=== PATIENT | female | born 1955 | race Caucasian/White ===

== ENCOUNTER → 2016-11-19 | Outpatient (CLI) | payer BC ==
[2016-11-19 12:02] LABS: ABSOLUTE EOSINOPHILS # (AUTO) 0.3 10^3/uL (0.0-0.6); ABSOLUTE LYMPHOCYTES (AUTO) 1.7 10^3/uL (0.5-4.7); ABSOLUTE MONOCYTES (AUTO) 0.3 10^3/uL (0.1-1.4); ABSOLUTE NEUT (AUTO) 2.8 10^3/uL (1.7-8.2); BASOPHILS % (AUTO) 0.6 % (0-2); EOSINOPHILS % (AUTO) 5.3 % (0-6); HEMATOCRIT 34.7 % (36.0-47.0); HEMOGLOBIN 11.5 g/dL (12.0-15.5); HGB HCT DIFFERENCE -0.2; LYMPHOCYTES % (AUTO) 32.8 % (13-45); MEAN CORPUSCULAR HEMOGLOBIN 29.7 pg (27.0-33.4); MEAN CORPUSCULAR HGB CONC 33.3 g/dL (32.0-36.0); MEAN CORPUSCULAR VOLUME 89 fl (80-97); MONOCYTES % (AUTO) 6.6 % (3-13); RED BLOOD COUNT 3.89 10^6/uL (3.72-5.28); RED CELL DISTRIBUTION WIDTH 13.5 % (11.5-14.0); SEGMENTED NEUTROPHILS % (AUTO) 54.7 % (42-78)
[2016-11-19 12:23] LABS: ALANINE AMINOTRANSFERASE 29 U/L (9-52); ALBUMIN 3.8 g/dL (3.5-5.0); ALKALINE PHOSPHATASE 85 U/L (38-126); ANION GAP 11 (5-19); ASPARTATE AMINO TRANSFERASE 26 U/L (14-36); BILIRUBIN,TOTAL 0.4 mg/dL (0.2-1.3); BLOOD UREA NITROGEN 12 mg/dL (7-20); CALCIUM 10.3 mg/dL (8.4-10.2); CARBON DIOXIDE 27 mmol/L (22-30); CHLORIDE 103 mmol/L (98-107); CHOLESTEROL 159.29 mg/dL (0-200); CREATININE RESULT 0.55 mg/dL (0.52-1.25); Direct HDL 50 mg/dL (>40); GLUCOSE 83 mg/dL (75-110); POTASSIUM 4.3 mmol/L (3.6-5.0); SODIUM 141.2 mmol/L (137-145); TOTAL PROTEIN 6.3 g/dL (6.3-8.2); TRIGLYCERIDES 88 mg/dL (<150)
[2016-11-19 12:34] LABS: DIRECT LDL 99 mg/dL (<100)
== END ==
LOC: OD 10:35
PROVIDERS: ATTEND Internal Medicine
DX: E11.9 Type 2 diabetes mellitus without complications (principal); I10 Essential (primary) hypertension; E78.5 Hyperlipidemia, unspecified; R53.83 Other fatigue
CPT/HCPCS: 36415; 80053; 80061; 83036; 85025

== ENCOUNTER 2017-05-12 13:07 | Emergency (ER) | payer BC ==
[2017-05-12 13:17] VITALS: BP 127/52
[2017-05-12] MEDS ORDERED: ACETAMINOPHEN 325 MG TABLET PO ONE (13:44)
--- NOTE | 2017-05-12 14:20 | ER Document Report ---
ED Fall - General Chief Complaint: Fall Stated Complaint: LEFT ANKLE PAIN Time Seen by Provider: 05/12/17 13:36 Notes: Patient is a 61-year-old female who was taking a tree out of her garden when she suffered from a witnessed mechanical fall. Patient admits to pain in bilateral ankles with a puncture wound left calf with slow bleeding. Also admits to left wrist pain and left hand pain but she fell back sure to catch herself. Patient states that she did hit her head, unsure of LOC but she remembers her talking to her. Patient is on Plavix for history of stroke more than 5 years ago. TRAVEL OUTSIDE OF THE [place] IN LAST 30 DAYS: No - Related data Allergies/Adverse Reactions: acetaminophen [From Percocet] Allergy (Unknown, Verified 05/12/17 13:15) aspirin [Aspirin] Allergy (Unknown, Verified 05/12/17 13:15) oxycodone HCl [From Percocet] Allergy (Unknown, Verified 05/12/17 13:15) peanut [Peanut] Allergy (Unknown, Verified 05/12/17 13:15) Sulfa (Sulfonamide Antibiotics) Allergy (Unknown, Verified 05/12/17 13:15) Past Medical History - Social History Smoking Status: Unknown if Ever Smoked Family History: Reviewed & Not Pertinent - Past Medical History Cardiac Medical History: Reports: Hx Hypercholesterolemia, Hx Hypertension Pulmonary Medical History: Reports: Hx Asthma, Hx COPD Neurological Medical History: Reports: Hx 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 Endocrine Medical History: Reports: Hx Diabetes Mellitus Type 2 Renal/ Medical History: Denies: Hx Peritoneal Dialysis GI Medical History: Reports: Hx Gastroesophageal Reflux Disease Psychiatric Medical History: Reports: Hx Post Traumatic Stress Disorder Past Surgical History: Reports: Hx Abdominal Surgery, Hx Bowel Surgery, Hx Orthopedic Surgery - knees, back, Hx Tubal Ligation - Immunizations Hx Diphtheria, Pertussis, Tetanus Vaccination: No Review of Systems - Review of Systems Constitutional: No symptoms reported Neurological/Psychological: Other - mild headache over her right eye but nothing at site of trauma Physical Exam - Vital signs Vitals: Temp Pulse Resp BP Pulse Ox 98.5 F 55 L 16 127/52 H 98 05/12/17 13:15 05/12/17 13:15 05/12/17 13:15 05/12/17 13:15 05/12/17 13:15 - General General appearance: Appears well, Alert In distress: None - HEENT Head: Normocephalic, Atraumatic. No: Abrasions, Lenz's sign, Ecchymosis, Open wounds, [place]'s eyes, Tenderness Eyes: Normal Conjunctiva: Normal Extraocular movements intact: Yes Eyelashes: Normal Pupils: PERRL - Cardiovascular Pulses: Normal: Radial, Dorsalis pedis Normal capillary refill: Yes - Back Back: Normal, Tender - bilateral paraspinous muscles, Other - patient jumping to superficial touch. No: Deformity/step-off, CVA tenderness, Vertebra tenderness, Scars, Scoliosis, Wounds - Extremities General lower extremity: Normal weight bearing - mild limp Shoulder: Normal, Nontender Elbow: Normal, Nontender Forearm: Normal, Nontender Wrist: Tender. No: Deformity, Dislocation, Limited ROM Hand: Tender. No: Deformity, Dislocation, Ecchymosis, Swelling Thigh: Normal Knee: Normal Calf: Normal Ankle: Tender - b/l, Ecchymosis. No: Deformity, Edema, Limited ROM Foot: Tender - b/l, Ecchymosis, Metatarsal compress. pain - b/l. No: Deformity , Edema - Skin Skin Temperature: Warm Skin Moisture: Dry Skin Color: Normal Skin Turgor: Elastic Skin irregularity: negative: Laceration Course - Re-evaluation Re-evalutation: 05/12/17 15:45 Patient does not have any focal neurologic deficits, nuchal rigidity, vital signs are within normal limits no papilledema. Patient is otherwise no acute distress and hemodynamically stable. Low index for suspicion of acute subarachnoid hemorrhage, meningitis or mass. Low suspicion for acute life- threatening etiology with intact neuro exam therefore no additional imaging or laboratory testing is indicated. All other imaging came back negative for fracture dislocation. Patient educated on rest, ice, compression, elevation for her other wounds. Patient expressed understanding. Patient stable for discharge home. - Vital Signs Vital signs: Temp Pulse Resp BP Pulse Ox 98.5 F 55 L 16 127/52 H 98 05/12/17 13:15 05/12/17 13:15 05/12/17 13:15 05/12/17 13:15 05/12/17 13:15 - Diagnostic Test Radiology reviewed: Image reviewed, Reports reviewed Discharge - Discharge Clinical Impression: Fall Qualifiers: Encounter type: initial encounter Qualified Code(s): W19.XXXA - Unspecified fall, initial encounter Condition: Good Additional Instructions: HEAD INJURY PRECAUTIONS: At this point, there is no evidence that your head injury is serious. Observation is necessary, however. Take only clear liquids for the first few hours, unless told otherwise by the doctor. If no pain medication was prescribed, you may take acetaminophen according to the directions on the bottle. Do not take any medication that may alter your level of alertness (unless you've discussed it with the doctor first) . Limit activity for the first 24 hours. Bed rest is best. During the first 24 hours, check to see approximately every two to three hours that the patient is easily arousable, responds normally, and can perform common tasks such as walking without difficulty. Contact your doctor or go to the hospital if any of the following things occur: Persistent vomiting, difficulty in arousing the patient, worsening or continued headache, or failure to improve as expected. Head injuries can cause symptoms that persist for a few days or even a few weeks. NECK INJURY (CERVICAL STRAIN): You have a neck strain. This is an injury to the muscles and ligaments in the neck. There is no evidence of a fracture of the neck bones. Also, no injury to the spinal cord or nerve roots was detected. Usually, stiffness and pain INCREASE for the first 24-48 hours after the injury. The pain will gradually resolve and the neck will become more mobile. Most patients are back at work or school within a few days. Typically, complete healing takes about two or three weeks. The usual initial treatment is rest and cold packs. A neck collar may be placed to keep the muscles of the neck at rest. Antiinflammatory and muscle relaxing medication are often used to reduce the spasm and irritation. You should call the doctor, or go to the hospital, if you develop numbness or weakness in any extremity, problems with your bladder or bowel, or pain radiating down the arms. MUSCLE STRAIN: You have strained a muscle -- torn the fibers within the muscle. This often occurs with strenuous exertion, or during an injury that suddenly stretches the muscle. The seriousness of a strain varies. Some strains heal within days, others cause problems for months. X-rays cannot show a muscle strain. X-rays are taken only if symptoms suggest that a fracture could be present. The usual treatment of a muscle strain is rest and ice packs. Sometimes, a sling, splint, or crutches may be necessary to rest the muscle. The muscle can be used again once pain subsides. Severe strains require a special exercise and stretching program to prevent permanent stiffness and disability. Your doctor will advise you if this will be necessary. Call the doctor immediately if pain or swelling becomes severe, or if numbness or discoloration develop. CONTUSION: Your injury has resulted in a contusion -- a crushing of the deep tissues. No injury to important structures was detected during the physician's exam. Contusions vary in the amount of pain they cause, and in the length of time required for healing. Typically, the area will become bruised, and will remain painful to touch for two or three weeks. However, most patients are back to working and playing within a few days. After the initial period of rest and cold-packs, your symptoms (together with the doctor's recommendations) will determine how rapidly you can get back to full activity. Usually this means "do what feels okay, but don't do things that hurt." If re-examination was recommended, it's important to follow up as instructed. Call the doctor or return any time if pain increases, if swelling becomes severe, if you develop numbness or weakness in an injured extremity, or if any other alarming symptoms occur. ABRASIONS: An abrasion is a scraping injury of the skin. Some scarring may result. The seriousness of an abrasion is not always obvious at first. Hidden tissue damage may be present and infection may occur despite proper care. Complete healing may take from ten days to as long as a month. The healing time depends on the depth of the abrasion, and on the amount of crushing of underlying tissues from the injury. Keep the wound and dressing clean. Do not shower or bathe the area until okayed by the doctor. If the dressing gets wet, remove it and blot the wound dry, then reapply a clean dressing. Dressings should be changed every day. Sunscreen should be used for six months after the skin is healed. If any signs of infection occur (swelling, redness, increasing tenderness, red streaks, profuse purulent drainage from the abrasion, tender lumps in the armpit or groin above the abrasion, or fever), see the doctor immediately. LOW BACK PAIN: Three out of every four people will have an episode of disabling back pain during their lifetime. Most commonly the pain is due to straining of the muscles and ligaments in the low back. Usual treatment includes: (1) Rest on a firm surface. Avoid lying on your stomach. (2) Ice pack the painful area. After a few days, gentle heat may be used intermittently to relax the area, or ice packs can be continued. (3) Medication may be needed -- muscle relaxers and antiinflammatory medicines are commonly used. (4) As the back improves, exercises are prescribed to strengthen the back and abdominal muscles. Your doctor will advise you on the proper care for your back at each stage in your recovery. You may be better in a few days -- or healing may take several weeks. If new symptoms of a "herniated disc" (radiation of pain, numbness, or tingling down the back of the leg or weakness in the leg) occur, you should be re-examined. Further testing may be necessary. USE OF TYLENOL (ACETAMINOPHEN): Acetaminophen may be taken for pain relief or fever control. It's much safer than aspirin, offering a wider range of "safe" dosages. It is safe during . Some brand names are Tylenol, Panadol, Datril, Anacin 3, Tempra, and Liquiprin. Acetaminophen can be repeated every four hours. The following are maximum recommended dosages: WEIGHT Dose Drops Elixir Chewable( 80mg) (LBS.) drprs=droppers tsp=teaspoon 6 40 mg 0.4 ml (1/2) 6-11 80 mg 0.8 ml (full) tsp 1 tab 12-16 120 mg 1 1/2 drprs 3/4 tsp 1 1/2 tabs 17-23 160 mg 2 drprs 1 tsp 2 tabs 24-30 240 mg 3 drprs 1 1/2 tsp 3 tabs 30-35 320 mg 2 tsp 4 tabs 36-41 360 mg 2 1/4 tsp 4 1/2 tabs 42-47 400 mg 2 1/2 tsp 5 tabs 48-53 480 mg 3 tsp 6 tabs 54-59 520 mg 3 1/4 tsp 6 1/2 tabs 60-64 560 mg 3 1/2 tsp 7 tabs 65-70 600 mg 3 3/4 tsp 7 1/2 tabs 71-76 640 mg 4 tsp 8 tabs 77-82 720 mg 4 1/2 tsp 9 tabs 83-88 800 mg 5 tsp 10 tabs >89 pounds or adults 650 mg to 900 mg Acetaminophen can be repeated every four hours. Maximum dose not to exceed 4000 mg a day. These maximum recommended dosages are slightly higher than the dosages written on the product container, but these dosages are very safe and below the toxic dosage for acetaminophen. NON-SUTURED LACERATION: Your laceration did not require suturing. Some lacerations cannot be sutured because of increased infection risk, while others simply don't need stitches because they are shallow or very short. Your injury should be protected while it heals. Usually complete healing takes 10 to 14 days. Keep the dressing clean and dry, and change it every day. If you notice increasing pain, redness, swelling, drainage, or tender lumps in the armpit or groin above the injury, infection may be present. You should call the doctor at once. TETANUS IMMUNIZATION GIVEN: You have been given an immunization against tetanus. Please record this in your records. In general, a booster is needed only once every 10 years. The tetanus shot protects against tetanus or "lockjaw," which is a complication of certain wound infections (the tetanus shot cannot protect against the actual infection). The immunization site may become warm and red due to local reaction. If this occurs, apply warm compresses and take aspirin or ibuprofen to reduce inflammation and discomfort. Return for evaluation if the reaction becomes severe. ICE PACKS: Apply ice packs frequently against the painful area. Many different schedules are recommended, such as "20 minutes on, 20 minutes off" or "one hour ice, two hours rest." If you need to work, you may need to go longer between ice treatments. You should plan to have the area ice packed AT LEAST one fourth of the time. The ice should be applied over the wrap, tape, or splint, or over a layer of cloth -- not directly against the skin. Some ice bags have a built-in cloth and can be put directly on the skin. WARM PACKS: After approximately two days, apply gentle heat (such as a heating pad or hot water bottle) for about 20 to 30 minutes about every two hours -- at least four times daily. Warmth and elevation will help you make a more rapid recovery , and will ease the pain considerably. Do not use HOT heat, and never apply heat for longer than 30 minutes. The continuous heat can invisibly damage skin and muscles -- even when no burn is seen on the surface. Damaged muscles can make you MORE sore. MUSCLE RELAXERS: Muscle relaxing medications are usually prescribed for acute muscle spasm or injury to the neck and back. They are often combined with antiinflammatory pain medication for increased relief. You may stop the muscle relaxer when the pain and stiffness have improved. Start the medication again if spasms recur. Muscle relaxers may cause drowsiness, especially with the first dose. Do not operate machinery or drive while under the effects of the medication. Most muscle relaxers last up to 24 hours. Do not combine the medication with alcohol. FOLLOW-UP CARE: If you have been referred to a physician for follow-up care, call the physician s office for an appointment as you were instructed or within the next two days. If you experience worsening or a significant change in your symptoms, notify the physician immediately or return to the Emergency Department at any time for re-evaluation. Prescriptions: Acetaminophen with Codeine [Acetaminophen-Cod #3 Tablet] 1 each PO BID #10 tablet Cyclobenzaprine HCl [Flexeril 10 mg Tablet] 10 mg PO TIDP PRN #15 tab PRN Reason: Referrals: YUNI MATTA MD [Primary Care Provider] - Follow up in 3-5 days
--- NOTE | 2017-05-12 14:49 | RADIOLOGY REPORT (SQ) ---
EXAM DESCRIPTION: CT HEAD WITHOUT COMPLETED DATE/TIME: 05/12/2017 2:38 pm REASON FOR STUDY: fall on plavix COMPARISON: 05/18/2011. TECHNIQUE: Axial images acquired through the brain without intravenous contrast. Images reviewed wi th bone, brain and subdural windows. Images stored on PACS. All CT scanners at this facility use dose modulation, iterative reconstruction, and/or weight based d osing when appropriate to reduce radiation dose to as low as reasonably achievable (ALARA). [facility]: Dose Right [facility]: CareDose [facility]: Dose Right [facility]: Teradose 4D [facility]: Ceannate RADIATION DOSE: Up-to-date CT equipment and radiation dose reduction techniques were employed. CTDIv ol: 49.0 mGy. DLP: 783 mGy-cm. mGy. LIMITATIONS: None. FINDINGS: VENTRICLES: Normal size and contour. CEREBRUM: No masses. No hemorrhage. No midline shift. Normal wu/white matter differentiation. N o evidence for acute infarction. CEREBELLUM: No masses. No hemorrhage. No alteration of density. No evidence for acute infarction. EXTRAAXIAL SPACES: No fluid collections. No masses. ORBITS AND GLOBE: No intra- or extraconal masses. Normal contour of globe without masses. CALVARIUM: No fracture. PARANASAL SINUSES: No fluid or mucosal thickening. SOFT TISSUES: No mass or hematoma. OTHER: No other significant finding. IMPRESSION: NORMAL BRAIN CT WITHOUT CONTRAST. TECHNICAL DOCUMENTATION: JOB ID: [id number] Quality ID # [id number]: Final reports with documentation of one or more dose reduction techniques (e.g., Au tomated exposure control, adjustment of the mA and/or kV according to patient size, use of iterative reconstruction technique) 2010 [employer]- All Rights Reserved
--- NOTE | 2017-05-12 14:50 | RADIOLOGY REPORT (SQ) ---
EXAM DESCRIPTION: ANKLE BILATERAL 3 VIEWS MIN COMPLETED DATE/TIME: 05/12/2017 2:42 pm REASON FOR STUDY: fall on plavix COMPARISON: None. NUMBER OF VIEWS: Three views. TECHNIQUE: AP, lateral, and oblique radiographic images acquired of the right and left ankle. LIMITATIONS: None. FINDINGS: MINERALIZATION: Normal. BONES: No acute fracture or dislocation. No worrisome bone lesions. JOINTS: No effusions. SOFT TISSUES: No soft tissue swelling. No foreign body. OTHER: No other significant finding. IMPRESSION: NO RADIOGRAPHIC EVIDENCE OF ACUTE INJURY OF THE RIGHT AND LEFT ANKLES. TECHNICAL DOCUMENTATION: JOB ID: [id number] [employer]- All Rights Reserved
--- NOTE | 2017-05-12 14:52 | RADIOLOGY REPORT (SQ) ---
EXAM DESCRIPTION: FOOT BILATERAL 3 VIEWS COMPLETED DATE/TIME: 05/12/2017 2:42 pm REASON FOR STUDY: fall on plavix COMPARISON: None. NUMBER OF VIEWS: Three views. TECHNIQUE: AP, lateral and oblique radiographic images acquired of the right and left foot. LIMITATIONS: None. FINDINGS: MINERALIZATION: Normal. BONES: No acute fracture or dislocation. Bilateral heel spurs. No worrisome bone lesions. JOINTS: No effusions. SOFT TISSUES: No soft tissue swelling. No foreign body. OTHER: No other significant finding. IMPRESSION: BILATERAL HEEL SPURS. OTHERWISE NEGATIVE STUDY OF THE RIGHT AND LEFT FEET. NO RADIOGRAP HIC EVIDENCE OF ACUTE INJURY. TECHNICAL DOCUMENTATION: JOB ID: [id number] [employer]- All Rights Reserved
--- NOTE | 2017-05-12 14:54 | RADIOLOGY REPORT (SQ) ---
EXAM DESCRIPTION: HAND LEFT 3 VIEWS COMPLETED DATE/TIME: 05/12/2017 2:42 pm REASON FOR STUDY: fall on plavix COMPARISON: None. EXAM PARAMETERS: NUMBER OF VIEWS: Three views. TECHNIQUE: AP, lateral and oblique radiographic images acquired of the left hand. LIMITATIONS: None. FINDINGS: MINERALIZATION: Normal. BONES: No acute fracture or dislocation. No worrisome bone lesions. Mild degenerative changes in th e interphalangeal joints with mild joint space narrowing and sclerosis. JOINTS: No effusions. SOFT TISSUES: No soft tissue swelling. No foreign body. OTHER: No other significant finding. IMPRESSION: MILD DEGENERATIVE CHANGES. NO RADIOGRAPHIC EVIDENCE OF ACUTE INJURY. TECHNICAL DOCUMENTATION: JOB ID: [id number] [employer]- All Rights Reserved
--- NOTE | 2017-05-12 14:54 | RADIOLOGY REPORT (SQ) ---
EXAM DESCRIPTION: WRIST LEFT 3 VIEWS COMPLETED DATE/TIME: 05/12/2017 2:42 pm REASON FOR STUDY: fall on plavix COMPARISON: None. NUMBER OF VIEWS: Three views. TECHNIQUE: AP, lateral, and oblique radiographic images acquired of the left wrist. LIMITATIONS: None. FINDINGS: MINERALIZATION: Normal. BONES: No acute fracture or dislocation. No worrisome bone lesions. Normal alignment. SOFT TISSUES: No soft tissue swelling. No foreign body. OTHER: No other significant finding. IMPRESSION: NEGATIVE STUDY OF THE LEFT WRIST. NO RADIOGRAPHIC EVIDENCE OF ACUTE INJURY. TECHNICAL DOCUMENTATION: JOB ID: [id number] [employer]- All Rights Reserved
--- NOTE | 2017-05-12 14:56 | RADIOLOGY REPORT (SQ) ---
EXAM DESCRIPTION: L SPINE WHOLE COMPLETED DATE/TIME: 05/12/2017 2:42 pm REASON FOR STUDY: fall on plavix COMPARISON: 10/04/2007. NUMBER OF VIEWS: Five views including obliques. TECHNIQUE: AP, lateral, oblique, and sacral radiographic images acquired of the lumbar spine. LIMITATIONS: None. FINDINGS: MINERALIZATION: Normal. SEGMENTATION: Normal. No transitional anatomy. ALIGNMENT: Normal. VERTEBRAE: Maintained height. No fracture or worrisome bone lesion. DISCS: Preserved height. No significant osteophytes or end plate irregularity. POSTERIOR ELEMENTS: Pedicles and facets are intact. No pars defect or posterior arch defects. HARDWARE: Disc hardware and posterior hardware at L4-L5. PARASPINAL SOFT TISSUES: Normal. PELVIS: Intact as visualized. No fractures or worrisome bone lesions. SI joints intact. OTHER: No other significant finding. IMPRESSION: SURGICAL CHANGES WITH HARDWARE. NO ACUTE FINDINGS. TECHNICAL DOCUMENTATION: JOB ID: [id number] [employer]- All Rights Reserved
--- NOTE | 2017-05-12 14:56 | RADIOLOGY REPORT (SQ) ---
EXAM DESCRIPTION: T SPINE AP/LAT COMPLETED DATE/TIME: 05/12/2017 2:42 pm REASON FOR STUDY: fall on plavix COMPARISON: None. NUMBER OF VIEWS: Two views. TECHNIQUE: AP and lateral radiographic images acquired of the thoracic spine. LIMITATIONS: None. FINDINGS: MINERALIZATION: Normal. ALIGNMENT: Normal. No scoliosis. VERTEBRAE: No fracture or bone lesion. Maintained height, normal segmentation. DISCS: No significant loss of height or significant narrowing. No large osteophytes. HARDWARE: None in the spine. MEDIASTINUM AND SOFT TISSUES: Normal heart size and aortic contour. No soft tissue abnormality. VISUALIZED LUNG LOCO: Clear. OTHER: No other significant finding. IMPRESSION: NO SIGNIFICANT RADIOGRAPHIC FINDING IN THE THORACIC SPINE. TECHNICAL DOCUMENTATION: JOB ID: [id number] [employer]- All Rights Reserved
== END 2017-05-12 16:05 | disposition home or self-care (01) ==
LOC: ER 13:07
DX: M25.572 Pain in left ankle and joints of left foot (principal); W14.XXXA Fall from tree, initial encounter; Z79.899 Other long term (current) drug therapy
CPT/HCPCS: 70450; 72070; 72110; 99284

== ENCOUNTER → 2017-07-21 | Outpatient (CLI) | payer BC ==
--- NOTE | 2017-07-22 19:28 | WOMENS IMAGING REPORT ---
EXAM DESCRIPTION: 3D SCREENING MAMMO BILAT COMPLETED DATE/TIME: 07/21/2017 8:41 am REASON FOR STUDY: SCREENING MAMMO Z12.31 ENCNTR SCREEN MAMMOGRAM FOR MALIGNANT NEOPLASM OF REKHA COMPARISON: Multiple since 2008 TECHNIQUE: Standard craniocaudal and mediolateral oblique views of each breast recorded using digita l acquisition and breast tomosynthesis. LIMITATIONS: None. FINDINGS: No masses, calcifications or architectural distortion. No areas of suspicion. Read with the assistance of CAD. .[facility] - R2 Cenova Version 1.3 .[facility] - R2 Cenova Version 1.3 .[facility] - R2 Cenova Version 2.4 .[facility] [place] - R2 Cenova Version 2.4 .[facility] BEDS AT THE [facility] - R2 Enterostomal Nurse Version 9.2 IMPRESSION: NORMAL MAMMOGRAM. BIRADS 1. BREAST DENSITY: b. There are scattered areas of fibroglandular density. BIRAD: 1 NEGATIVE RECOMMENDATION: ROUTINE SCREENING Please continue yearly bilateral screening tomosynthesis in July 2018 COMMENT: The patient has been notified of the results by letter per MQSA requirements. Additional no tification policies are in place for contacting patient with suspicious or incomplete findings. Quality ID #[id number]: The [employer] recommends an annual screening mammogram for women aged 40 years or over. This facility utilizes a reminder system to ensure that all patients receive reminder letters, and/or direct phone calls for appointments. This includes reminders for routine scr eening mammograms, diagnostic mammograms, or other Breast Imaging Interventions when appropriate. Th is patient will be placed in the appropriate reminder system. The [employer] (ACR) has developed recommendations for screening MRI of the breast s in certain patient populations, to be used in conjunction with mammography. Breast MRI surveillanc e may be appropriate for women with more than 20% lifetime risk of developing breast cancer as deter mined by genetic testing, significant family history of the disease, or history of mantle radiation f or Hodgkins Disease. ACR Practice Guidelines 2008. DBT Technology DBT is a type of tomographic mammography. With conventional mammography, overlapping breast tissue ma y make lesions difficult to detect, even with good compression. DBT uses an x-ray tube that rotates a round the breast, taking images at different angles. These images are then combined to create thin sl ices of the breast that the radiologist can view as a 3D reconstruction. The [employer] unit can perform full-field digital mammograms (2D imaging); or DBT (3D imaging); or both, in a combination mode that quickly performs both the mammogram and the tomosynthesis scan while the breast is still compressed. PQRS 6045F: Fluoroscopic imaging is not utilized for breast tomosynthesis. TECHNICAL DOCUMENTATION: FINDING NUMBER: (1) ASSESSMENT: (1) JOB ID: [id number] [employer]- All Rights Reserved
== END ==
LOC: WI 08:23
PROVIDERS: ATTEND Specialist
DX: Z12.31 Encounter for screening mammogram for malignant neoplasm of breast (principal)
CPT/HCPCS: 77063; G0202; 77067

== ENCOUNTER → 2017-08-06 | Outpatient (CLI) | payer BC ==
[2017-08-06 12:46] LABS: FOLATE > 20.00 ng/mL (>2.76)
== END ==
LOC: OD 10:06
PROVIDERS: ATTEND Physician Assistant Medical
DX: R07.89 Other chest pain (principal); R53.83 Other fatigue; R42 Dizziness and giddiness
CPT/HCPCS: 36415; 82607; 82728; 82746; 84443

== ENCOUNTER 2019-02-26 13:43 | Emergency (ER) | payer BC, MEDICARE ==
--- NOTE | 2019-02-26 14:00 | ER Document Report ---
ED Medical Screen (RME) - General Chief Complaint: Facial Swelling Stated Complaint: RIGHT EYE PAIN Time Seen by Provider: 02/26/19 13:56 Primary Care Provider: CAT WHITTINGTON PA-C [Primary Care Provider] - Follow up as needed Mode of Arrival: Ambulatory Information source: Patient Notes: 63-year-old female presented to ED for complaint of a painful swollen red area to the medial aspect of the right eye. She states it started 4 days ago she went to her primary care doctor who put her on antibiotics and eyedrops. Patient states she called the primary care doctor today because the pain and swelling was worse than 4 days ago. She states she is been taking the Augmentin as prescribed as well as the eyedrops. Patient states her primary care doctor instructed her to go to the emergency room she would probably need a CT and an beverage server to open the abscess. Patient is alert oriented respirations regular and unlabored speaking in full sentences. Patient does have a history of diabetes and COPD she has had a LAP-BAND and is allergic to a lot of medications. I have greeted and performed a rapid initial assessment of this patient. A comprehensive ED assessment and evaluation of the patient, analysis of test results and completion of medical decision making process will be conducted by an additional ED providers. Dictation of this chart was performed using voice recognition software; therefore, there may be some unintended grammatical errors. TRAVEL OUTSIDE OF THE [place] IN LAST 30 DAYS: No - Related Data Allergies/Adverse Reactions: acetaminophen [From Percocet] Allergy (Unknown, Verified 02/26/19 13:43) aspirin [Aspirin] Allergy (Unknown, Verified 02/26/19 13:43) oxycodone HCl [From Percocet] Allergy (Unknown, Verified 02/26/19 13:43) peanut [Peanut] Allergy (Unknown, Verified 02/26/19 13:43) Sulfa (Sulfonamide Antibiotics) Allergy (Unknown, Verified 02/26/19 13:43) Past Medical History - Past Medical History Cardiac Medical History: Reports: Hx Hypercholesterolemia, Hx Hypertension Pulmonary Medical History: Reports: Hx Asthma, Hx COPD Neurological Medical History: Reports: Hx 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 Endocrine Medical History: Reports: Hx Diabetes Mellitus Type 2 Renal/ Medical History: Denies: Hx Peritoneal Dialysis GI Medical History: Reports: Hx Gastroesophageal Reflux Disease Psychiatric Medical History: Reports: Hx Post Traumatic Stress Disorder Past Surgical History: Reports: Hx Abdominal Surgery, Hx Bowel Surgery, Hx Orthopedic Surgery - knees, back, Hx Tubal Ligation - Immunizations Hx Diphtheria, Pertussis, Tetanus Vaccination: No Physical Exam - Vital signs Vitals: Temp Pulse Resp BP Pulse Ox 98.7 F 87 15 147/62 H 97 02/26/19 13:47 02/26/19 13:47 02/26/19 13:47 02/26/19 13:47 02/26/19 13:47 Course - Vital Signs Vital signs: Temp Pulse Resp BP Pulse Ox 98.7 F 87 15 147/62 H 97 02/26/19 13:47 02/26/19 13:47 02/26/19 13:47 02/26/19 13:47 02/26/19 13:47 Doctor's Discharge - Discharge Referrals: CAT WHITTINGTON PA-C [Primary Care Provider] - Follow up as needed
[2019-02-26 14:27] LABS: ABSOLUTE EOSINOPHILS # (AUTO) 0.2 10^3/uL (0.0-0.6); ABSOLUTE LYMPHOCYTES (AUTO) 1.5 10^3/uL (0.5-4.7); ABSOLUTE MONOCYTES (AUTO) 0.8 10^3/uL (0.1-1.4); ABSOLUTE NEUT (AUTO) 7.1 10^3/uL (1.7-8.2); BASOPHILS % (AUTO) 0.5 % (0-2); EOSINOPHILS % (AUTO) 2.5 % (0-6); HEMATOCRIT 36.2 % (36.0-47.0); LYMPHOCYTES % (AUTO) 15.6 % (13-45); MEAN CORPUSCULAR HEMOGLOBIN 29.2 pg (27.0-33.4); MEAN CORPUSCULAR HGB CONC 33.2 g/dL (32.0-36.0); MEAN CORPUSCULAR VOLUME 88 fl (80-97); MONOCYTES % (AUTO) 8.2 % (3-13); PLATELET COUNT 314 10^3/uL (150-450); RED BLOOD COUNT 4.12 10^6/uL (3.72-5.28); RED CELL DISTRIBUTION WIDTH 13.3 % (11.5-14.0); SEGMENTED NEUTROPHILS % (AUTO) 73.2 % (42-78); TOTAL CELLS COUNTED % (AUTO) 100 %; WHITE BLOOD COUNT 9.7 10^3/uL (4.0-10.5)
[2019-02-26 15:00] LABS: ALANINE AMINOTRANSFERASE 29 U/L (9-52); ALBUMIN 4.1 g/dL (3.5-5.0); ALKALINE PHOSPHATASE 145 U/L (38-126); ANION GAP 8 (5-19); ASPARTATE AMINO TRANSFERASE 24 U/L (14-36); BILIRUBIN,DIRECT 0.3 mg/dL (0.0-0.4); BILIRUBIN,TOTAL 0.5 mg/dL (0.2-1.3); BLOOD UREA NITROGEN 15 mg/dL (7-20); CALCIUM 11.1 mg/dL (8.4-10.2); CARBON DIOXIDE 29 mmol/L (22-30); CHLORIDE 104 mmol/L (98-107); GLUCOSE 104 mg/dL (75-110); POTASSIUM 4.7 mmol/L (3.6-5.0); SODIUM 141.2 mmol/L (137-145); TOTAL PROTEIN 7.5 g/dL (6.3-8.2)
--- NOTE | 2019-02-26 15:41 | ER Document Report ---
ED Head/Face/Scalp Injury <BERNICE TAPIA - Last Filed: 02/26/19 17:57> - General Mode of Arrival: Ambulatory TRAVEL OUTSIDE OF THE [place] IN LAST 30 DAYS: No - HPI Where: Home <HALEY MARTINES - Last Filed: 02/26/19 22:36> - General Chief Complaint: Facial Swelling Stated Complaint: RIGHT EYE PAIN Time Seen by Provider: 02/26/19 13:56 Primary Care Provider: MARINA MASSEY DO [ACTIVE STAFF] - 02/26/19 5:41 pm Notes: 63-year-old female to the emergency department complaining of eye pain. Patient states that her doctors had her on antibiotics for a week for swelling underneath the left eye and the tear duct area. Seems to be getting worse. No fever. Extremely painful. No change in vision. (HALEY MARTINES) - Related Data Allergies/Adverse Reactions: acetaminophen [From Percocet] Allergy (Unknown, Verified 02/26/19 13:43) aspirin [Aspirin] Allergy (Unknown, Verified 02/26/19 13:43) oxycodone HCl [From Percocet] Allergy (Unknown, Verified 02/26/19 13:43) peanut [Peanut] Allergy (Unknown, Verified 02/26/19 13:43) Sulfa (Sulfonamide Antibiotics) Allergy (Unknown, Verified 02/26/19 13:43) Past Medical History - General Information source: Patient - Social History Smoking Status: Never Smoker Frequency of alcohol use: None Drug Abuse: None Lives with: Spouse/Significant other Family History: Reviewed & Not Pertinent Patient has suicidal ideation: No Patient has homicidal ideation: No - Past Medical History Cardiac Medical History: Reports: Hx Hypercholesterolemia, Hx Hypertension Pulmonary Medical History: Reports: Hx Asthma, Hx COPD Neurological Medical History: Reports: Hx 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 Endocrine Medical History: Reports: Hx Diabetes Mellitus Type 2 Renal/ Medical History: Denies: Hx Peritoneal Dialysis GI Medical History: Reports: Hx Gastroesophageal Reflux Disease Psychiatric Medical History: Reports: Hx Post Traumatic Stress Disorder Past Surgical History: Reports: Hx Abdominal Surgery, Hx Bowel Surgery, Hx Orthopedic Surgery - knees, back, Hx Tubal Ligation - Immunizations Hx Diphtheria, Pertussis, Tetanus Vaccination: No <HALEY MARTINES - Last Filed: 02/26/19 22:36> Review of Systems - Review of Systems Constitutional: denies: Fever, Malaise, Weakness EENT: Eye pain, Eye discharge. denies: Double vision, Difficulty swallowing Cardiovascular: denies: Chest pain, Palpitations, Heart racing Gastrointestinal: denies: Abdominal pain, Diarrhea, Nausea Genitourinary: denies: Dysuria, Discharge, Flank pain Skin: See HPI, Other - Redness and swelling underneath the right eye at the nasal lacrimal duct area. Neurological/Psychological: denies: Confusion, Weakness, Numbness <HALEY MARTINES - Last Filed: 02/26/19 22:36> Physical Exam - Vital signs Interpretation: Normal - HEENT Head: Normocephalic Eyes: Other - Patient has a 1 cm round swollen area at the right nasal lacrimal duct area. There is surrounding erythema in the infraorbital area on the right eye. Left eye is normal. Fundascopic: Normal - Respiratory Respiratory status: No respiratory distress Chest status: Nontender Breath sounds: Normal Chest palpation: Normal - Cardiovascular Rhythm: Regular Heart sounds: Normal auscultation Murmur: No - Abdominal Inspection: Normal Distension: No distension Bowel sounds: Normal Tenderness: Nontender Organomegaly: No organomegaly - Back Back: Normal, Nontender - Extremities General upper extremity: Normal inspection, Nontender, Normal color, Normal ROM, Normal temperature General lower extremity: Normal inspection, Nontender, Normal color, Normal ROM, Normal temperature, Normal weight bearing. No: Mp's sign - Neurological Neuro grossly intact: Yes Cognition: Normal Orientation: AAOx4 [place] Coma Scale Eye Opening: Spontaneous [place] Coma Scale Verbal: Oriented [place] Coma Scale Motor: Obeys Commands Rachel Coma Scale Total: 15 Speech: Normal Motor strength normal: LUE, RUE, LLE, RLE Sensory: Normal - Skin Skin Temperature: Warm Skin Moisture: Dry Skin Color: Normal, Other - Redness with cellulitic appearance under the right eye. <HALEY MARTINES - Last Filed: 02/26/19 22:36> - Vital signs Vitals: Temp Pulse Resp BP Pulse Ox 98.7 F 87 15 147/62 H 97 02/26/19 13:47 02/26/19 13:47 02/26/19 13:47 02/26/19 13:47 02/26/19 13:47 Course - Laboratory Result Diagrams: 02/26/19 14:05 02/26/19 14:05 <BERNICE TAPIA - Last Filed: 02/26/19 17:57> - Laboratory Result Diagrams: 02/26/19 14:05 02/26/19 14:05 <HALEY MARTINES - Last Filed: 02/26/19 22:36> - Re-evaluation Re-evalutation: 02/26/19 17:39 CT scan reveals dacryocystitis. Consulted with ophthalmology, Dr. Buckley will see patient right now in the office. She did not get the complete course of vancomycin but I am stopping this as definitive treatment would be an abscess I&D which the physical trainer can do. Patient will be discharged at this time. Current she is on Augmentin. 02/26/19 22:[address] 02/26/19 16:03 IMPRESSION: Constellation of findings consistent with right dacryocystitis. No extension into the orbit. (HALEY MARTINES) - Vital Signs Vital signs: Temp Pulse Resp BP Pulse Ox 98.3 F 77 16 150/61 H 100 02/26/19 17:43 02/26/19 17:43 02/26/19 17:43 02/26/19 17:43 02/26/19 17:43 - Laboratory Laboratory results interpreted by me: 02/26/19 14:05 Calcium 11.1 H Alkaline Phosphatase 145 H Discharge <BERNICE TAPIA - Last Filed: 02/26/19 17:57> <HALEY MARTINES - Last Filed: 02/26/19 22:36> - Discharge Clinical Impression: Right dacryocystitis Condition: Good Disposition: HOME, SELF-CARE Instructions: Abscess ([facility]) Additional Instructions: Please proceed directly to the physical trainer office as instructed. Return if there are any complications or problems. Referrals: MARINA MASSEY DO [ACTIVE STAFF] - 02/26/19 5:41 pm
[2019-02-26] MEDS ORDERED: VANCOMYCIN HCL INJ 1000 MG VIAL IV ONE (16:04)
[2019-02-26] MEDS ORDERED: DEXAMETHASONE SOD PHOS INJ 10 MG/1 ML VIAL IV ONE (16:04)
--- NOTE | 2019-02-26 16:54 | RADIOLOGY REPORT (SQ) ---
EXAM DESCRIPTION: CT FACIAL AREA WITH COMPLETED DATE/TIME: 02/26/2019 4:40 pm REASON FOR STUDY: right eye abscess COMPARISON: Noncontrast head CT 05/12/2017 TECHNIQUE: Post contrast images through the facial bones and orbits windowed for bone and soft tissu e. Additional coronal and sagittal reconstructed images reviewed. All images stored on PACS. All CT scanners at this facility use dose modulation, iterative reconstruction, and/or weight based d osing when appropriate to reduce radiation dose to as low as reasonably achievable (ALARA). [facility]: Dose Right [facility]: CareDose [facility]: Dose Right [facility]: Teradose 4D [facility]: Smart Agennix CONTRAST TYPE AND DOSE: contrast/concentration: Isovue 350.00 mg/ml; Total Contrast Delivered: 75.0 ml; Total Saline Delivered: 55.0 ml RENAL FUNCTION: BUN 15; creatinine 0.65 RADIATION DOSE: CT Rad equipment meets quality standard of care and radiation dose reduction techniq ues were employed. CTDIvol: 30.4 mGy. DLP: 498 mGy-cm. . LIMITATIONS: None. FINDINGS: FACIAL BONES: No fracture or bone lesion. ORBITS: No fracture. A serpiginous fluid collection extends from the right nasolacrimal duct into th e superficial soft tissues adjacent to the medial canthus. Subcutaneous fat stranding surrounds this finding. There is no postseptal extension. The bilateral intraconal and extraconal fat is maintain ed. PARANASAL SINUSES: Clear. No significant mucosal thickening, mass or fluid. No nasal polyps. Maxilla ry sinus outlets are patent. SOFT TISSUES: As above. INFERIOR BRAIN: Limited view. No acute findings. OTHER: No other significant finding. IMPRESSION: Constellation of findings consistent with right dacryocystitis. No extension into the o rbit. TECHNICAL DOCUMENTATION: JOB ID: [id number] Quality ID # [id number]: Final reports with documentation of one or more dose reduction techniques (e.g., Au tomated exposure control, adjustment of the mA and/or kV according to patient size, use of iterative reconstruction technique) 2010 [employer]- All Rights Reserved Reading location - IP/workstation name: [email or web address]
[2019-02-26 17:44] VITALS: BP 150/61
== END 2019-02-26 17:54 | disposition home or self-care (01) ==
LOC: ER 13:43
DX: H04.301 Unspecified dacryocystitis of right lacrimal passage (principal); R22.0 Localized swelling, mass and lump, head; H57.12 Ocular pain, left eye; E78.00 Pure hypercholesterolemia, unspecified; I10 Essential (primary) hypertension; E11.9 Type 2 diabetes mellitus without complications; Z88.6 Allergy status to analgesic agent; Z88.2 Allergy status to sulfonamides; Z98.51 Tubal ligation status; Z91.010 Allergy to peanuts
CPT/HCPCS: 99284; 96374; 96375; 36415; 85025; 80053; 70487; J3370; J1100

== ENCOUNTER 2019-07-01 21:36 | Observation (INO) | payer BC, MEDICARE ==
[2019-07-01 22:01] LABS: ABSOLUTE EOSINOPHILS # (AUTO) 0.2 10^3/uL (0.0-0.6); ABSOLUTE LYMPHOCYTES (AUTO) 2.1 10^3/uL (0.5-4.7); ABSOLUTE MONOCYTES (AUTO) 0.5 10^3/uL (0.1-1.4); ABSOLUTE NEUT (AUTO) 13.5 10^3/uL (1.7-8.2); BASOPHILS % (AUTO) 0.3 % (0-2); EOSINOPHILS % (AUTO) 1.5 % (0-6); HEMATOCRIT 36.1 % (36.0-47.0); HEMOGLOBIN 11.9 g/dL (12.0-15.5); LYMPHOCYTES % (AUTO) 12.9 % (13-45); MEAN CORPUSCULAR HEMOGLOBIN 28.4 pg (27.0-33.4); MEAN CORPUSCULAR HGB CONC 32.8 g/dL (32.0-36.0); MEAN CORPUSCULAR VOLUME 86 fl (80-97); MONOCYTES % (AUTO) 3.3 % (3-13); PLATELET COUNT 335 10^3/uL (150-450); RED BLOOD COUNT 4.18 10^6/uL (3.72-5.28); RED CELL DISTRIBUTION WIDTH 13.3 % (11.5-14.0); TOTAL CELLS COUNTED % (AUTO) 100 %; WHITE BLOOD COUNT 16.5 10^3/uL (4.0-10.5)
[2019-07-01 22:18] LABS: ALBUMIN 4.2 g/dL (3.5-5.0); ALKALINE PHOSPHATASE 230 U/L (38-126); ANION GAP 13 (5-19); ASPARTATE AMINO TRANSFERASE 102 U/L (14-36); BILIRUBIN,DIRECT 0.6 mg/dL (0.0-0.4); BILIRUBIN,TOTAL 1.2 mg/dL (0.2-1.3); BLOOD UREA NITROGEN 17 mg/dL (7-20); CALCIUM 11.4 mg/dL (8.4-10.2); CARBON DIOXIDE 24 mmol/L (22-30); CHLORIDE 103 mmol/L (98-107); CREATINE KINASE 45 U/L (30-135); GLUCOSE 119 mg/dL (75-110); POTASSIUM 3.5 mmol/L (3.6-5.0); TOTAL PROTEIN 7.4 g/dL (6.3-8.2)
[2019-07-01 22:30] LABS: CREATINE KINASE MB 0.43 ng/mL (<4.55); TROPONIN I < 0.012 ng/mL
--- NOTE | 2019-07-01 22:35 | ER Document Report ---
HPI - HPI Patient complains to provider of: chest pain, nausea, sob Time Seen by Provider: 07/01/19 22:18 Onset/Duration: Gradual, Constant, Waxing and waning, Worse Quality of pain: Pressure, Sharp - crushing Severity: Moderate Pain Level: 4 Context: 63-year-old female with the listed past medical history here for substernal crushing/pressure chest pain and nausea that was intermittent a few days ago but has today become more persistent and increased in intensity and became constant. She states before she would have this pain with exertion and it will go away if she laid still however now she states she still has the pain at rest sometimes. she was brought in via ems and given 2 sublingual in route and she states her pain dropped from a 10 to a 7. Her last stress test was about a year and a half ago and she was normal then however i do not have access to these records for review. Her siebel solution architect is Dr. Infante. she states she doesn't have a pcp. state s she stopped all of her meds 2mths ago as she was supposed to have some eye surgery but didn't have the surgery and just now apparently restarted them all yest. She states they plan to do another stress test in August however her symptoms escalated this week so she came in for evaluation. She is not able to take aspirin secondary to respiratory failure with her COPD per patient. She is on Plavix however secondary to a remote stroke. No other blood thinners. She has some shortness of breath with the pain however no other increased work of breathing are worsening shortness of breath from her baseline COPD. She is not on home oxygen. She is not a smoker. She has a chronic dry cough however states this is unchanged from her baseline. no syncope. no palpitations. no hx of mi, CHF, a.fib, or cad. no ripping or tearing sensation. No prior history of blood clots. No recent long distance travel/immobilization, recent surgery, exogenous estrogen use, hemoptysis, history of cancer, or calf pain/swelling. No prior history of arrhythmias. No other associated symptoms at this time. Associated Symptoms: Chest pain, Nonproductive cough, Nausea Exacerbated by: Movement, Deep breathing Relieved by: Remaining still Similar symptoms previously: Yes Recently seen / treated by doctor: No - ROS Systems Reviewed and Negative: Yes All other systems reviewed and negative - To include 10 systems, unless mentioned in the hpi. - REPRODUCTIVE Reproductive: DENIES: : Past Medical History - General Information source: Patient, Relative - adult children and at bedside - Social History Smoking Status: Never Smoker Frequency of alcohol use: None Drug Abuse: None Lives with: Family Family History: DM, Hypertension Patient has suicidal ideation: No Patient has homicidal ideation: No - Past Medical History Cardiac Medical History: Reports: Hx Hypercholesterolemia, Hx Hypertension Denies: Hx Atrial Fibrillation, Hx Congestive Heart Failure, Hx DVT, Hx Heart Attack, Hx Pulmonary Embolism Pulmonary Medical History: Reports: Hx COPD - not on home O2, Hx Sleep Apnea Neurological Medical History: Reports: Hx 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. Denies: Hx Seizures Endocrine Medical History: Reports: Hx Diabetes Mellitus Type 2 Renal/ Medical History: Denies: Hx Peritoneal Dialysis GI Medical History: Reports: Hx Gastroesophageal Reflux Disease Psychiatric Medical History: Reports: Hx Post Traumatic Stress Disorder Infectious Medical History: Denies: Hx HIV Past Surgical History: Reports: Hx Abdominal Surgery, Hx Bowel Surgery, Hx Ortho pedic Surgery - knees, back, Hx Tubal Ligation - Immunizations Immunizations up to date: Yes Hx Diphtheria, Pertussis, Tetanus Vaccination: No Vertical Provider Document - CONSTITUTIONAL Agree With Documented VS: Yes Exam Limitations: No Limitations Notes: >>>> PHYSICAL_EXAM: GENERAL_APPEARANCE: well_nourished, alert, cooperative, no_acute_distress, mild_obvious_discomfort. pleasant, obese elderly white female, appears uncomfortable but not toxic, speaking in full sentences, in no sign of resp distress, family at bedside VITALS: reviewed, see vital signs table. HEAD: no_swelling\tenderness on the head. normocephalic. atraumatic. no caal signs. no raccoons eyes. EYES: PERRL, EOMI, conjunctiva_clear. NOSE: no_nasal_discharge. MOUTH: (-)decreased moisture. THROAT: no_tonsilar_inflammation, no_airway_obstruction. no_lymphadenopathy NECK: supple, no_neck_tenderness, full rom. full strength. no meningeal signs. BACK: no_back_tenderness. CHEST_WALL: no_chest_tenderness. no overlying skin changes LUNGS: no_wheezing, ctab (-)accessory muscle use, good air exchange bilateral. HEART: normal_rate, normal_rhythm, ABDOMEN: normal_BS, soft, no_abd_tenderness, (-)guarding, (-)rebound, no distension or peritoneal signs. no cva ttp EXTREMITIES: strength 5/5 in all_extremities, good pulses in all_extremities, no_swelling\tenderness in the extremities, no_edema. full rom. normal gait. good pulses. brisk cap refill. good hand hematology specialist. neg jennifer sign NEURO: motor and sensation intact, cranial nerves 2-12 intact, cerebellar fxn intact SKIN: warm, dry, good_color, no_rash. MENTAL_STATUS: speech_clear, oriented_X_3, normal_affect, responds_appropriately to questions. - INFECTION CONTROL TRAVEL OUTSIDE OF THE [place] IN LAST 30 DAYS: No Course - Re-evaluation Re-evalutation: 07/02/19 00:12 pt here for substernal chest pain, nausea, and some intermittent sob for the las t few days that was initially with exertion but now is also started to be at rest. Her heart score is a 5. She had resolution of her pain with sublingual nitro, morphine and nitro paste. She was not able to receive aspirin secondary to an allergy of it involving respiratory depression with her COPD per patient; however, she is on Plavix and has taken this today. Her initial labs were unremarkable. EKG unremarkable per dr ram. Chest x-ray was negative per radiology and reviewed by myself. Secondary to this I did consult hospitalist, Dr. napoles, at 2:40am after the pt was pain free and he stated he would return my call, he was tied up with another patient. spoke to dr napoles again at 3:30a who agreed to accept the pt for further workup and tx. care transferred to hospitalist in stable condition. please refer to their note for further details of the visit. On reexam, pt improved with tx listed. remained stable. nontoxic. well appearing. pain controlled. case discussed with ER Attending, Dr. ram, who directed and agrees with plan of care and advised to admit the pt for further workup and tx heart score: 5 Documentation achieved through voice recording which may lead to some occasional accidental typographical errors. Extensive efforts have been made to proof read documentation to make sure these are the least as possible. Category Date Time Status Continuous Cardiac Monitoring (ED) CONTINUOUS Care 07/01/19 21:42 Completed EKG Documentation STAT Care 07/01/19 21:42 Completed Oxygen (ED) Nasal Cannula 2 lpm Care 07/01/19 21:42 Active Pulse Oximeter Continuous (ED) CONTINUOUS Care 07/01/19 21:42 Active Saline Lock (ED) NOW Care 07/01/19 21:42 Active CHEST SINGLE VIEW [RAD] Stat Exams 07/01/19 Completed CBC WITH DIFF [HEME] Stat Lab 07/01/19 21:20 Completed COMPREHENSIVE METABOLIC PANEL [CHEM] Stat Lab 07/01/19 21:20 Completed CREATINE KINASE MB [CHEM] Stat Lab 07/01/19 21:20 Completed CREATINE KINASE [CHEM] Stat Lab 07/01/19 21:20 Completed MAGNESIUM [CHEM] Stat Lab 07/01/19 21:20 Completed PROTHROMBIN TIME/INR [COAG] Stat Lab 07/01/19 21:20 Completed TROPONIN I [CHEM] Stat Lab 07/01/19 21:20 Completed TROPONIN I [CHEM] Stat Lab 07/02/19 01:42 Ordered Morphine Sulfate [Morphine 10 mg/ml Inj] Med 07/02/19 02:13 Discontinued 4 mg IV NOW ONE Nitroglycerin [Nitrol 2% Ointment 1Gm Packet] Med 07/02/19 00:11 Discontinued 1 gm TP NOW ONE Nitroglycerin [Nitrostat 0.4 mg (1/150 Gr) Tabs 25/ Med 07/02/19 00:11 Active Bottle] 1 tab SL ASDIR PRN Ondansetron HCl/Pf [Zofran Inj/Pf 4 mg/2 ml Sdv] Med 07/01/19 23:06 Discontinued 4 mg IV NOW ONE Ondansetron HCl/Pf [Zofran Inj/Pf 4 mg/2 ml Sdv] Med 07/02/19 02:13 Discontinu ed 4 mg IV NOW ONE EKG ER ONLY [ER] Stat Oth 07/01/19 21:42 Completed 07/02/19 02:45 07/02/19 03:43 - Vital Signs Vital signs: 07/02/19 00:37 Temp Resp BP Pulse Ox 07/02/19 00:24 97.6 F 07/02/19 00:23 98 07/02/19 00:01 17 133/71 H 98 07/02/19 00:00 26 H 96 07/01/19 23:31 21 H 146/62 H 100 07/01/19 23:30 15 98 07/01/19 23:01 14 96 07/01/19 23:00 20 133/51 H 97 07/01/19 22:59 28 H 94 07/01/19 22:01 17 143/59 H 100 07/01/19 22:00 14 100 07/01/19 21:52 15 147/69 H 100 07/01/19 21:51 10 L 100 07/02/19 02:42 Temp Resp BP Pulse Ox 07/02/19 00:24 97.6 F 07/02/19 00:23 98 07/02/19 00:01 17 133/71 H 98 07/02/19 00:00 26 H 96 07/01/19 23:31 21 H 146/62 H 100 07/01/19 23:30 15 98 07/01/19 23:01 14 96 07/01/19 23:00 20 133/51 H 97 07/01/19 22:59 28 H 94 07/01/19 22:01 17 143/59 H 100 07/01/19 22:00 14 100 07/01/19 21:52 15 147/69 H 100 07/01/19 21:51 10 L 100 - Laboratory Result Diagrams: 07/01/19 21:20 07/01/19 21:20 Laboratory results interpreted by me: 07/01/19 07/01/19 21:20 21:20 WBC 16.5 H Hgb 11.9 L Lymph % (Auto) 12.9 L Absolute Neuts (auto) 13.5 H Seg Neutrophils % 82.0 H Potassium 3.5 L Glucose 119 H Calcium 11.4 H Direct Bilirubin 0.6 H AST 102 H Alkaline Phosphatase 230 H 07/02/19 00:37 Labs- Entire Visit 07/01/19 07/01/19 07/01/19 21:20 21:20 21:20 WBC 16.5 H RBC 4.18 Hgb 11.9 L Hct 36.1 MCV 86 MCH 28.4 MCHC 32.8 RDW 13.3 Plt Count 335 Lymph % (Auto) 12.9 L [place] % (Auto) 3.3 Eos % (Auto) 1.5 Baso % (Auto) 0.3 Absolute Neuts (auto) 13.5 H Absolute Lymphs (auto) 2.1 Absolute Monos (auto) 0.5 Absolute Eos (auto) 0.2 Absolute Basos (auto) 0.0 Seg Neutrophils % 82.0 H PT 13.5 INR 1.02 Sodium 140.1 Potassium 3.5 L Chloride 103 Carbon Dioxide 24 Anion Gap 13 BUN 17 Creatinine 0.70 Est GFR ( Amer) > 60 Est GFR (MDRD) Non-Af > 60 Glucose 119 H Calcium 11.4 H Magnesium Total Bilirubin 1.2 Direct Bilirubin 0.6 H Neonat Total Bilirubin Not Reportable Neonat Direct Bilirubin Not Reportable Neonat Indirect Bili Not Reportable AST 102 H ALT 47 Alkaline Phosphatase 230 H Creatine Kinase 45 CK-MB (CK-2) Troponin I Total Protein 7.4 Albumin 4.2 07/01/19 07/01/19 21:20 21:20 WBC RBC Hgb Hct MCV MCH MCHC RDW Plt Count Lymph % (Auto) [place] % (Auto) Eos % (Auto) Baso % (Auto) Absolute Neuts (auto) Absolute Lymphs (auto) Absolute Monos (auto) Absolute Eos (auto) Absolute Basos (auto) Seg Neutrophils % PT INR Sodium Potassium Chloride Carbon Dioxide Anion Gap BUN Creatinine Est GFR ( Amer) Est GFR (MDRD) Non-Af Glucose Calcium Magnesium 2.1 Total Bilirubin Direct Bilirubin Neonat Total Bilirubin Neonat Direct Bilirubin Neonat Indirect Bili AST ALT Alkaline Phosphatase Creatine Kinase CK-MB (CK-2) 0.43 Troponin I < 0.012 Total Protein Albumin - Diagnostic Test Radiology reviewed: Image reviewed, Reports reviewed Radiology results interpreted by al: 07/02/19 00:37 Chest X-Ray 07/01/19 00:00 IMPRESSION: No acute cardiopulmonary disease. - EKG Interpretation by Ms EKG shows normal: Sinus rhythm Rate: Normal Rhythm: NSR - 55 bpm, no stemi, reviewed by dr ram When compared to previous EKG there are: Previous EKG unavailable Discharge - Discharge Clinical Impression: Nausea Chest pain Qualifiers: Chest pain type: unspecified Qualified Code(s): R07.9 - Chest pain, unspecified Leukocytosis Qualifiers: Leukocytosis type: unspecified Qualified Code(s): D72.829 - Elevated white blood cell count, unspecified Condition: Stable Disposition: ADMITTED OBSERVATION Admitting Provider: Debby (Hospitalist) Unit Admitted: Telemetry
[2019-07-01 22:37] LABS: INTERNATIONAL RATION (INR) 1.02; PROTHROMBIN TIME 13.5 SEC (11.4-15.4)
--- NOTE | 2019-07-01 22:48 | RADIOLOGY REPORT (SQ) ---
XR CHEST 1 VIEW CLINICAL STATEMENT: cp COMPARISON: None FINDINGS: Heart is mildly enlarged. There is no focal lung consolidation or pleural effusion. No evidence of pulmonary edema or pneumothorax. IMPRESSION: No acute cardiopulmonary disease.
[2019-07-01] MEDS ORDERED: ONDANSETRON HCL INJ/PF 4 MG/2 ML SDV IV ONE (23:06)
--- NOTE | 2019-07-01 23:58 | EKG REPORT ---
SEVERITY:- NORMAL ECG - SINUS BRADYCARDIA 55 : Confirmed by: Mick Simpson MD 01-Jul-2019 23:58:01
[2019-07-02] MEDS ORDERED: NITROGLYCERIN 0.4 MG/TAB 25 TAB/BOTTLE SL PRN (00:11)
[2019-07-02] MEDS ORDERED: NITROGLYCERIN 2% OINTMENT 1 GM PACKET TP ONE (00:11)
[2019-07-02] MEDS ORDERED: ONDANSETRON HCL INJ/PF 4 MG/2 ML SDV IV ONE (02:13)
[2019-07-02] MEDS ORDERED: MORPHINE SULFATE 10 MG/ML INJ IV ONE (02:13)
[2019-07-02] MEDS ORDERED: MAGNESIUM HYDROXIDE SUSP 30 ML UDCUP PO PRN (04:17)
[2019-07-02] MEDS ORDERED: TEMAZEPAM 15 MG CAPSULE PO PRN (04:17)
[2019-07-02] MEDS ORDERED: MAG HYDROX/AL HYDROX/SIMETH SUSP 30 ML UDCUP PO PRN (04:17)
[2019-07-02] MEDS ORDERED: ONDANSETRON HCL INJ/PF 4 MG/2 ML SDV IV PRN (04:17)
[2019-07-02] MEDS ORDERED: LEVALBUTEROL HCL NEB 0.63 MG/3 ML AMPUL NEB PRN (04:17)
[2019-07-02] MEDS ORDERED: MORPHINE SULFATE 10 MG/ML INJ IV PRN ×4 (04:21→04:29)
[2019-07-02] MEDS ORDERED: HYDRALAZINE HCL INJ/PF 20 MG/1 ML SDV IV PRN (04:21)
[2019-07-02] MEDS: NITROGLYCERIN 2% OINTMENT 1 GM PACKET TP SCH ×2 (06:29→11:03)
[2019-07-02] MEDS: HEPARIN SOD (PORCINE) 5,000 UNIT/ML 1 ML VIAL SUBCUT SCH ×2 (06:34→14:30)
--- NOTE | 2019-07-02 06:40 | PDOC H&P ---
History of Present Illness Admission Date/PCP: 07/02/2019 03:48 Dr. Infante Patient complains of: Chest pain History of Present Illness: ZHANE CADENA is a 63 year old female who presented to the emergency room with a 2-day history of chest pain. Patient admits intermittent midsternal chest pr essure becoming more persistent, frequent and intense over the course of the last 2 days. Initially the pain was of mild intensity, occurring only with exertion, lasting only a few seconds and being resolved by rest. The symptoms have intensified to the point where at 5 PM on 06/30/2019 the chest pain was a severe and constant crushing pressure occurring at rest with no resolution. She admits that the symptoms are worsened by activity and taking deep breaths. Her symptoms have been accompanied by nausea and dyspnea. She admits similar prior symptoms due to her coronary artery disease in the past. She further admits having discontinued taking all of her medications about 2 months ago in preparation for having eye surgery and even though she did not have the surgery she has not restarted her medications. She has not identified any additional aggravating or ameliorating factors for her chest pain. Because the pain would not resolve she summoned EMS who gave her sublingual nitroglycerin x2 she was given an additional nitroglycerin, supplemental oxygen and Plavix in the emergency room and her chest pain resolved. Patient's initial serum troponin and EKG showed no evidence of acute myocardial ischemia or injury. Patient was subsequently admitted to hospital for further evaluation and treatment on observation status. Past Medical History Cardiac Medical History: Reports: Coronary Artery Disease, Hyperlipidema, Hypertension Denies: Atrial Fibrillation, Congestive Heart Failure, DVT, Myocardial Infarction, Pulmonary Embolism Pulmonary Medical History: Reports: Asthma, Chronic Obstructive Pulmonary Disease (COPD) - not on home O2, Sleep Apnea EENT Medical History: Denies: Cataracts, Ears - Hearing aids Neurological Medical History: Denies: Hemorrhagic CVA, Ischemic CVA, Multiple Sclerosis, Seizures Endocrine Medical History: Reports: Diabetes Mellitus Type 2, Obesity Denies: Diabetes Mellitus Type 1, Hyperthyroidism, Hypothyroidism Renal/ Medical History: Denies: Chronic Kidney Disease, Nephrolithiasis Malignancy Medical History: Reports: None GI Medical History: Reports: Gastroesophageal Reflux Disease Denies: Cirrhosis, Crohn's Disease, Hepatitis, Ulcerative Colitis Musculoskeltal Medical History: Denies: Arthritis, Gout Skin Medical History: Denies: Eczema, Psoriasis Psychiatric Medical History: Reports: Post Traumatic Stress Disorder Denies: Alcohol Dependency, Substance Abuse, Tobacco Dependency Traumatic Medical History: Reports: None Hematology: Denies: Anemia, Bleeding Tendencies Infectious Medical History: Reports: None Past Surgical History Past Surgical History: Reports: Orthopedic Surgery - knees, back, Tubal Ligation Social History Information Source: Patient Lives with: Family Smoking Status: Never Smoker Frequency of Alcohol Use: None Hx Recreational Drug Use: No Drugs: None Hx Prescription Drug Abuse: No - Advance Directive Resuscitation Status: Full Code Surrogate healthcare decision maker:: Ayah Pisano Family History Family History: DM, Hypertension Parental Family History Reviewed: Yes Children Family History Reviewed: No Sibling(s) Family History Reviewed.: Yes Medication/Allergy Home Medications: Atenolol [Tenormin 25 mg Tablet] 25 mg PO DAILY 01/01/14 Atorvastatin Calcium [Lipitor 40 mg Tablet] 40 mg PO DAILY 01/01/14 Cephalexin Monohydrate [Keflex 500 mg Capsule] 500 mg PO QID #20 capsule 01/01/14 Cholecalciferol (Vitamin D3) [Vitamin D3 2000 unit Capsule] 2,000 units PO DAILY 01/01/14 Cholecalciferol (Vitamin D3) [Vitamin D3 5000 unit/mL Drops] 5,000 units PO DAILY 01/01/14 Clopidogrel Bisulfate [Plavix] 75 mg PO DAILY 01/01/14 Diclofenac Sodium [Voltaren 0.1 % Oph Soln 2.5 ml] 1 applic TOP DAILY 01/01/14 Docusate Sodium [Stool Softener] 1 tab PO DAILY 01/01/14 Exenatide [Byetta] 10 mcg PO DAILY 01/01/14 Fiber [Fiber Choice] 1 tab PO DAILY 01/01/14 Flaxseed Oil [Flax Seed Oil] 1 cap PO [id number] 01/01/14 Fluticasone Propionate [Flovent Diskus 50 mcg] 50 mcg IH DAILY 01/01/14 Fluticasone/Salmeterol [Advair 500-50 Diskus 14 Dose/Diskus] 1 puff IH DAILY Furosemide [Lasix] 40 mg PO DAILY 01/01/14 Levocetirizine Dihydrochloride [Xyzal 5 mg Tablet] 5 mg PO DAILY 01/01/14 Omeprazole 20 mg PO DAILY 01/01/14 Oxybutynin Chloride [Ditropan Xl] 10 mg PO DAILY 01/01/14 Pirbuterol Acetate [Maxair Autohaler] 14 gm IH DAILY 01/01/14 Pnv,Calcium 72/Iron,Carb/Folic [ Plus Iron Tablet] 1 tab PO DAILY 01/01/14 Tiotropium [place] [Spiriva Handihaler 18 mcg/dose (30 Dose)] 1 puff IH DAILY 01/01/14 Valsartan [Diovan 80 mg Tablet] 80 mg PO DAILY 01/01/14 Zafirlukast 20 mg PO DAILY 01/01/14 Acetaminophen with Codeine [Acetaminophen-Cod #3 Tablet] 1 each PO BID #10 tablet 05/12/17 Cyclobenzaprine HCl [Flexeril 10 mg Tablet] 10 mg PO TIDP PRN #15 tab 05/12/17 Allergies/Adverse Reactions: acetaminophen [From Percocet] Allergy (Unknown, Verified 02/26/19 13:43) aspirin [Aspirin] Allergy (Unknown, Verified 02/26/19 13:43) oxycodone HCl [From Percocet] Allergy (Unknown, Verified 02/26/19 13:43) peanut [Peanut] Allergy (Unknown, Verified 02/26/19 13:43) Sulfa (Sulfonamide Antibiotics) Allergy (Unknown, Verified 02/26/19 13:43) Review of Systems Constitutional: ABSENT: chills, fever(s) Eyes: ABSENT: visual disturbances, other - Eye pain Ears: ABSENT: hearing changes, other - Ear pain Nose, Mouth, and Throat: ABSENT: mouth pain, sore throat Cardiovascular: PRESENT: as per HPI, chest pain, dyspnea on exertion. ABSENT: edema, orthropnea, palpitations Respiratory: PRESENT: as per HPI, cough - Chronic, dyspnea Gastrointestinal: PRESENT: as per HPI, nausea. ABSENT: abdominal pain, constipation, diarrhea, vomiting Genitourinary: ABSENT: dysuria, hematuria Musculoskeletal: ABSENT: back pain, joint swelling, muscle weakness Integumentary: ABSENT: pruritus, rash Neurological: ABSENT: confusion, convulsions, focal weakness, memory loss, syncope Psychiatric: ABSENT: anxiety, depression Endocrine: ABSENT: cold intolerance, heat intolerance Hematologic/Lymphatic: ABSENT: easy bleeding, easy bruising Allergic/Immunologic: ABSENT: seasonal rhinorrhea Physical Exam Vital Signs: Temp Pulse Resp BP Pulse Ox 97.6 F 17 133/71 H 98 07/02/19 00:24 07/02/19 00:01 07/02/19 00:01 07/02/19 00:23 Intake & Output 06/30/19 07/01/19 07/02/19 23:59 23:59 23:59 Weight 90.718 kg General appearance: PRESENT: no acute distress, cooperative, obese Head exam: PRESENT: atraumatic, normocephalic Eye exam: PRESENT: conjunctiva pink. ABSENT: conjunctival injection, scleral icterus Ear exam: PRESENT: normal external ear exam. ABSENT: bleeding, drainage Mouth exam: PRESENT: dry mucosa, neck supple Neck exam: ABSENT: thyromegaly, tracheal deviation Respiratory exam: PRESENT: clear to auscultation aren, symmetrical, unlabored Cardiovascular exam: PRESENT: RRR. ABSENT: clicks, gallop, rubs Pulses: PRESENT: normal radial pulses, normal dorsalis pedis pul Vascular exam: PRESENT: normal capillary refill. ABSENT: pallor GI/Abdominal exam: PRESENT: normal bowel sounds, soft Rectal exam: PRESENT: deferred Extremities exam: ABSENT: joint swelling, pedal edema Musculoskeletal exam: ABSENT: deformity, dislocation Neurological exam: PRESENT: alert, oriented to person, oriented to place, oriented to time, oriented to situation, CN II-XII grossly intact. ABSENT: motor sensory deficit Psychiatric exam: PRESENT: appropriate affect, normal mood Skin exam: PRESENT: dry, intact, warm. ABSENT: jaundice, rash, urticaria Results Laboratory Results: 07/01/19 21:20 07/01/19 21:20 07/01/19 07/01/19 07/01/19 21:20 21:20 21:20 WBC 16.5 H RBC 4.18 Hgb 11.9 L Hct 36.1 MCV 86 MCH 28.4 MCHC 32.8 RDW 13.3 Plt Count 335 Seg Neutrophils % 82.0 H Sodium 140.1 Potassium 3.5 L Chloride 103 Carbon Dioxide 24 Anion Gap 13 BUN 17 Creatinine 0.70 Est GFR ( Amer) > 60 Glucose 119 H Calcium 11.4 H Magnesium 2.1 Total Bilirubin 1.2 AST 102 H Alkaline Phosphatase 230 H Total Protein 7.4 Albumin 4.2 07/01/19 07/01/19 07/02/19 21:20 21:20 02:38 Creatine Kinase 45 CK-MB (CK-2) 0.43 Troponin I < 0.012 < 0.012 Impressions: Chest X-Ray 07/01/19 00:00 IMPRESSION: No acute cardiopulmonary disease. Assessment and Plan - Diagnosis (1) Chest pain Qualifiers: Chest pain type: unspecified Qualified Code(s): R07.9 - Chest pain, unspecified Is this a current diagnosis for this admission?: Yes Plan: Patient's chest pain be treated with morphine sulfate 2 to 4 mg IV every 2 hours on a as needed basis using a sliding scale. She will also be treated with nitroglycerin ointment 1 inch changed every 6 hours. Serial cardiac enzymes will be obtained and a Cardiolite stress test will be performed if her cardiac enzymes remain negative. She will be placed on a cardiac diet. (2) CAD (coronary artery disease), [place] coronary artery Qualifiers: [place] vs. transplanted heart: [place] heart Associated angina: with unspecified angina Qualified Code(s): I25.119 - Atherosclerotic heart disease of [place] coronary artery with unspecified angina pectoris Is this a current diagnosis for this admission?: Yes Plan: The patient's usual medications for treatment of her coronary artery disease, hypertension and hyperlipidemia will be restarted as per her prescribed directions. Patient will be monitored on a hall monitor bed and she will be on a cardiac diet. (3) HTN (hypertension) Qualifiers: Hypertension type: essential hypertension Qualified Code(s): I10 - Essential (primary) hypertension Is this a current diagnosis for this admission?: Yes Plan: The patient's usual medications for treatment of her coronary artery disease, hypertension and hyperlipidemia will be restarted as per her prescribed directions. Patient will be monitored on a hall monitor bed and she will be on a cardiac diet. Her blood pressure will be assessed frequently during her hospital course. (4) HLD (hyperlipidemia) Qualifiers: Hyperlipidemia type: unspecified Qualified Code(s): E78.5 - Hyperlipidemia, unspecified Is this a current diagnosis for this admission?: Yes Plan: The patient's usual medications for treatment of her coronary artery disease, hypertension and hyperlipidemia will be restarted as per her prescribed directions. Patient will be monitored on a hall monitor bed and she will be on a cardiac diet. Her lipid profile will be obtained to evaluate her current state of hyperlipidemia. - Time Time Spent with patient: 25-34 minutes Medications reviewed and adjusted accordingly: Yes Anticipated discharge: Home Within: within 48 hours - Inpatient Certification Based on my medical assessment, after consideration of the patient's comorbidities, presenting symptoms, or acuity I expect that the services needed warrant INPATIENT care.: No I certify that my determination is in accordance with my understanding of Medicare's requirements for reasonable and necessary INPATIENT services [42 CFR 412.3e].: No Medical Necessity: Significant Comorbidiites Make Outpatient Treatment Too Risky, Need Close Monitoring Due to Risk of Patient Decompensation, Need For Continuous Telemetry Monitoring, Risk of Complication if Not Cared For in Hospi joceline
[2019-07-02 07:17] LABS: CREATINE KINASE 31 U/L (30-135); TRIGLYCERIDES 71 mg/dL (<150)
[2019-07-02 07:28] LABS: DIRECT LDL 119 mg/dL (<100)
[2019-07-02 07:34] LABS: FREE T3 3.05 pg/mL (2.77-5.27); FREE T4 (FREE THYROXINE) 1.06 ng/dL (0.78-2.19)
[2019-07-02 07:37] LABS: CREATINE KINASE MB < 0.22 ng/mL (<4.55); TROPONIN I < 0.012 ng/mL
[2019-07-02 07:48] LABS: THYROID STIMULATING HORMONE 0.42 uIU/mL (0.47-4.68)
[2019-07-02 09:10] LABS: HEMATOCRIT 33.2 % (36.0-47.0); MEAN CORPUSCULAR HEMOGLOBIN 28.8 pg (27.0-33.4); MEAN CORPUSCULAR HGB CONC 33.2 g/dL (32.0-36.0); MEAN CORPUSCULAR VOLUME 87 fl (80-97); PLATELET COUNT 270 10^3/uL (150-450); RED BLOOD COUNT 3.82 10^6/uL (3.72-5.28); RED CELL DISTRIBUTION WIDTH 13.6 % (11.5-14.0); WHITE BLOOD COUNT 9.1 10^3/uL (4.0-10.5)
[2019-07-02 09:29] LABS: ANION GAP 8 (5-19); BLOOD UREA NITROGEN 15 mg/dL (7-20); CALCIUM 10.5 mg/dL (8.4-10.2); CARBON DIOXIDE 26 mmol/L (22-30); CHLORIDE 105 mmol/L (98-107); GLUCOSE 122 mg/dL (75-110); POTASSIUM 4.1 mmol/L (3.6-5.0)
[2019-07-02] MEDS ORDERED: DOCUSATE SODIUM 100 MG CAPSULE PO SCH (10:00)
[2019-07-02] MEDS ORDERED: FAMOTIDINE 20 MG TABLET PO SCH (10:00)
[2019-07-02] MEDS ORDERED: VALSARTAN 80 MG TABLET PO SCH (10:00)
[2019-07-02] MEDS: LEVALBUTEROL HCL NEB 1.25 MG/3 ML AMPUL NEB SCH ×2 (10:12→15:44)
[2019-07-02] MEDS ORDERED: REGADENOSON INJ 0.4 MG/5 ML DISP.SYRIN IV ONE (10:47)
[2019-07-02 14:01] LABS: CREATINE KINASE MB < 0.22 ng/mL (<4.55); TROPONIN I < 0.012 ng/mL
--- NOTE | 2019-07-02 16:05 | PDOC DISCHARGE SUMMARY ---
General - Admit/Disc Date/PCP Admission Date/Primary Care Provider: 07/02/19 03:54 Discharge Date: 07/02/19 - Additional Information Resuscitation Status: Full Code Discharge Diet: As Tolerated Discharge Activity: Activity As Tolerated Home Medications: Atenolol [Tenormin 25 mg Tablet] 25 mg PO DAILY 01/01/14 Atorvastatin Calcium [Lipitor 40 mg Tablet] 40 mg PO DAILY 01/01/14 Clopidogrel Bisulfate [Plavix] 75 mg PO DAILY 01/01/14 Docusate Sodium [Stool Softener] 1 tab PO DAILY 01/01/14 Exenatide [Byetta] 5 mcg PO BID 01/01/14 Flaxseed Oil [Flax Seed Oil] 7,000 cap PO DAILY 01/01/14 Fluticasone/Salmeterol [Advair 500-50 Diskus 14 Dose/Diskus] 1 puff IH BID 01/01/14 Furosemide [Lasix] 40 mg PO DAILY 01/01/14 Levocetirizine Dihydrochloride [Xyzal 5 mg Tablet] 5 mg PO DAILY 01/01/14 Omeprazole 20 mg PO DAILY 01/01/14 Oxybutynin Chloride [Ditropan Xl] 10 mg PO DAILY 01/01/14 Pirbuterol Acetate [Maxair Autohaler] 1 puff IH DAILY 01/01/14 Tiotropium [place] [Spiriva Handihaler 18 mcg/dose (30 Dose)] 1 puff IH DAILY 01/01/14 Zafirlukast 20 mg PO BID 01/01/14 Alprazolam [Xanax 0.5 mg Tablet] 0.5 mg PO DAILYP PRN 07/02/19 Cholecalciferol (Vitamin D3) [Vitamin D3 5000 unit Capsule] 5,000 unit PO DAILY 07/02/19 Cholecalciferol (Vitamin D3) [Vitamin D3] 10,000 unit PO Q2D 07/02/19 Epinephrine [Epipen] 0.3 mg IJ ASDIR PRN 07/02/19 Ergocalciferol (Vitamin D2) [Vitamin D2] 50 mcg PO Q14D 07/02/19 Gabapentin [Neurontin 300 mg Capsule] 300 mg PO DAILY 07/02/19 Meclizine HCl [Antivert 25 mg Tablet] 25 mg PO DAILYP PRN 07/02/19 Pregabalin [Lyrica 50 mg Capsule] 50 mg PO DAILY 07/02/19 Rosuvastatin Calcium [Crestor] 40 mg PO DAILY 07/02/19 Sertraline HCl [Zoloft 50 mg Tablet] 50 mg PO DAILY 07/02/19 Triamcinolone Acetonide [Aristocort 0.1% Cream] 1 applic TP BID 07/02/19 History of Present Illness History of Present Illness: ZHANE CADENA is a 63 year old female who presented to the emergency room with a 2-day history of chest pain. Patient admits intermittent midsternal chest pressure becoming more persistent, frequent and intense over the course of the last 2 days. Initially the pain was of mild intensity, occurring only with exertion, lasting only a few seconds and being resolved by rest. The symptoms have intensified to the point where at 5 PM on 06/30/2019 the chest pain was a severe and constant crushing pressure occurring at rest with no resolution. She admits that the symptoms are worsened by activity and taking deep breaths. Her symptoms have been accompanied by nausea and dyspnea. She admits similar prior symptoms due to her coronary artery disease in the past. She further admits having discontinued taking all of her medications about 2 months ago in preparation for having eye surgery and even though she did not have the surgery she has not restarted her medications. She has not identified any additional aggravating or ameliorating factors for her chest pain. Because the pain would not resolve she summoned EMS who gave her sublingual nitroglycerin x2 she was given an additional nitroglycerin, supplemental oxygen and Plavix in the emergency room and her chest pain resolved. Patient's initial serum troponin and EKG showed no evidence of acute myocardial ischemia or injury. Patient was subsequently admitted to hospital for further evaluation and treatment on observation status. Hospital Course Hospital Course: Patient was admitted for observation. Serial troponin and EKG benign. She underwent stress test. I discussed with Dr. Villalba in person and he tells me that the stress test is negative. Patient is okay to go home and will follow-up with him. Physical Exam Vital Signs: Temp Pulse Resp BP Pulse Ox 98.0 F 60 15 142/60 H 95 07/02/19 12:02 07/02/19 12:02 07/02/19 12:02 07/02/19 12:02 07/02/19 12:02 Intake & Output 07/01/19 07/02/19 07/03/19 06:59 06:59 06:59 Intake Total 0 236 Balance 0 236 Weight 198 lb 10.184 oz Exam: Patient is no acute distress Alert oriented to time place person No anxiety or depression Head: atraumatic normocephalic Pupils: are equal reactive Neck: is supple and trachea is central no lymphadenopathy No pharyngeal erythema or exudates Heart: Regular rate and rhythm Lungs: clear no distress Abdomen: nontender nondistended Neurological exam: unremarkable Musculoskeletal: No joint swelling or effusion chronic lower back pain and tenderness No suicidal or homicidal ideation Results Laboratory Results: 07/02/19 06:33 07/02/19 06:33 07/01/19 07/01/19 07/01/19 21:20 21:20 21:20 WBC 16.5 H RBC 4.18 Hgb 11.9 L Hct 36.1 MCV 86 MCH 28.4 MCHC 32.8 RDW 13.3 Plt Count 335 Seg Neutrophils % 82.0 H Sodium 140.1 Potassium 3.5 L Chloride 103 Carbon Dioxide 24 Anion Gap 13 BUN 17 Creatinine 0.70 Est GFR ( Amer) > 60 Glucose 119 H Calcium 11.4 H Magnesium 2.1 Total Bilirubin 1.2 AST 102 H Alkaline Phosphatase 230 H Total Protein 7.4 Albumin 4.2 Triglycerides Cholesterol LDL Cholesterol Direct VLDL Cholesterol HDL Cholesterol TSH Free T4 Free T3 pg/mL 07/02/19 07/02/19 07/02/19 06:33 06:33 06:33 WBC 9.1 RBC 3.82 Hgb 11.0 L Hct 33.2 L MCV 87 MCH 28.8 MCHC 33.2 RDW 13.6 Plt Count 270 Seg Neutrophils % Sodium Potassium Chloride Carbon Dioxide Anion Gap BUN Creatinine Est GFR ( Amer) Glucose Calcium Magnesium 2.3 Total Bilirubin AST Alkaline Phosphatase Total Protein Albumin Triglycerides 71 Cholesterol 167.20 LDL Cholesterol Direct 119 H VLDL Cholesterol 14.0 HDL Cholesterol 41 TSH 0.42 L Free T4 1.06 Free T3 pg/mL 3.05 07/02/19 06:33 WBC RBC Hgb Hct MCV MCH MCHC RDW Plt Count Seg Neutrophils % Sodium 138.9 Potassium 4.1 Chloride 105 Carbon Dioxide 26 Anion Gap 8 BUN 15 Creatinine 0.60 Est GFR ( Amer) > 60 Glucose 122 H Calcium 10.5 H Magnesium Total Bilirubin AST Alkaline Phosphatase Total Protein Albumin Triglycerides Cholesterol LDL Cholesterol Direct VLDL Cholesterol HDL Cholesterol TSH Free T4 Free T3 pg/mL 07/01/19 07/01/19 07/02/19 21:20 21:20 02:38 Creatine Kinase 45 CK-MB (CK-2) 0.43 Troponin I < 0.012 < 0.012 07/02/19 07/02/19 07/02/19 06:33 06:33 12:41 Creatine Kinase 31 31 CK-MB (CK-2) < 0.22 Troponin I < 0.012 07/02/19 12:41 Creatine Kinase CK-MB (CK-2) < 0.22 Troponin I < 0.012 Impressions: Chest X-Ray 07/01/19 00:00 IMPRESSION: No acute cardiopulmonary disease. Qualifiers - * PATIENT BEING DISCHARGED WITH ANY OF THE FOLLOWING DIAGNOSIS: No Acute Heart Failure - Is this a Heart Failure Patient?: No
[2019-07-02 17:25] VITALS: BP 122/59
[2019-07-02] MEDS ORDERED: ATORVASTATIN CALCIUM 40 MG TABLET PO SCH (22:00)
--- NOTE | 2019-07-08 01:18 | DRAGON STRESS TEST REPORT ---
Intravenous Lexiscan Cardiolite stress test using single photon emmision computerized tomography. Date of procedure: 07/02/2019. Ordering Provider: Dr. Haroldo Wilcox. Patient's status: In Patient. Indication: Chest pain. In a patient with a history of coronary artery disease. Coronary risk factors: Age, diabetes, hypertension, and dyslipidemia Resting EKG: Sinus Rhythm. O voltage in precordial leads. Otherwise normal EKG. Stress EKG: No changes of ischemia. The patient has no chest pain or discomfort, and there were no arrhythmias seen. Reason for termination: Protocol. Conclusions: Normal EKG and hemodynamic response to IV Lexiscan. Nuclear data: At rest the patient was given 14.56 millicuries of technetium 99m sestamibi injected intravenously. As per protocol rest non gated SPECT images were obtained. Subsequently the patient was given intravenous Lexiscan at a dose of 0.4 mg in 5 mL intravenously, followed by flush with normal saline. Subsequently the stress dose of 42.4 millicuries of technetium 99m sestamibi was injected intravenously. As per protocol stress gated images were obtained. Nuclear interpretation: Review of images showed that all segments of the myocardium had normal perfusion at rest, and normal perfusion post stress with IV Lexiscan. All segments of the myocardium had normal motion, contraction, and thickening by gated study. T. I D. ratio was normal at 1.10.. There is no transient ischemic dilatation of the left ventricle. Computer read rest, and stress left ventricular ejection fraction were 62 %, and 66 %, respectively. . Conclusion: 1. There is no scintigraphic evidence of Lexiscan induced myocardial ischemia. 2. There is no scintigraphic evidence of myocardial infarction/scar. Recommendations: Aggressive risk factor modification, and treating the underlying co- morbidities. MTDD
== END 2019-07-02 17:40 | disposition home or self-care (01) ==
LOC: ER 21:36 → EH 07-02 03:54 → 4N 07-02 04:50
PROVIDERS: ADMIT Emergency Medicine; ATTEND Emergency Medicine
DX: R07.89 Other chest pain (principal); I25.119 Atherosclerotic heart disease of native coronary artery with unspecified angina pectoris; E78.5 Hyperlipidemia, unspecified; I10 Essential (primary) hypertension; Z79.899 Other long term (current) drug therapy; R11.0 Nausea; R06.00 Dyspnea, unspecified; K21.9 Gastro-esophageal reflux disease without esophagitis; R05 Cough; E66.9 Obesity, unspecified; J44.9 Chronic obstructive pulmonary disease, unspecified; E11.9 Type 2 diabetes mellitus without complications; D72.829 Elevated white blood cell count, unspecified; Z91.14 Patient's other noncompliance with medication regimen; Z98.51 Tubal ligation status; Z82.49 Family history of ischemic heart disease and other diseases of the circulatory system; Z86.73 Personal history of transient ischemic attack (TIA), and cerebral infarction without residual deficits; Z79.02 Long term (current) use of antithrombotics/antiplatelets; Z88.6 Allergy status to analgesic agent
CPT/HCPCS: 93005; 96376; 99285; 96374; 96375; 36415 ×2; 84439; 82553 ×2; 82550 ×2; 83735 ×2; 84443; 85025; 85027; 85610; 80048; 80053; 84484 ×2; 84481; 80061; 93017; 71045; 78452; 93010; 94640; G0378; A9500; J2785; J1644; J2270; J2405; J3490 ×2; Q9969